=== PATIENT | female | born 1945 | race Caucasian/White ===

== ENCOUNTER → 2016-11-26 | Outpatient (CLI) | payer MEDICARE, OTHER ==
[~2016-11-26] MED LIST: ACAI BERRY500 MG PO; ACETAMINOPHEN P1 TA2 PO; ACETAMINOPHEN P1 TA5 PO; ALLERGY SHOTS; ASPIRIN81 M1 PO; ASPIRIN81 M2 PO; AVAPRO150 MG PO; CALCIUM + D 6001 TA1 PO; CALCIUM + VITAM1 TAB PO; CELEXA10 MG PO; FISH OIL 1,0001 EACH PO; HAIR, SKIN & N1 EACH PO; HEARTBURN150 MG PO; HORMONE CREAM; IRBESARTAN150 MG PO; LAMISIL250 MG PO; LORTAB 5/500 TA1 TA2 PO; METOPROLOL TAR25 MG PO; MICARDIS20 MG PO; MULTI-DAY VITAM1 TAB PO; MULTIPLE VITAMI1 T13 PO; NEXIUM PO; PANTOPRAZOLE SO40 MG PO; PHENERGAN12.5 MG PO; PREMARIN VAG CR45 GM MC; PROBIOTIC1 EAC3 PO; SINGULAIR; VICODIN 5/1 TAB 5/50 PO; VYTORIN 10-20 M1 TAB PO; ZOCOR20 MG PO; ZYRTEC PO; ZYRTEC10 M1 PO
--- NOTE | ~2016-11-26 | MY11 ---
[facility] A Service [facility] RADIOLOGY TEXT RESULTS PATIENT: ESMER GUILLEN LOCATION: [facility] : 49 UNIT #: [id number] AGE: [address]: Josef Isaac MD SEX: F ORDER DR: [id number] [address] [address] [id number] O MR#: [id number] Acc #: [id number] NAME: ESMER GUILLEN : 1945 SEX: F STUDY DATE/TIME: 11/26/2016 10:05 UNIT: [facility] ROOM: STUDY DESCRIPTION: MY Mammogram Screening Dig Jaret Attending Physician: Josef Isaac M.D. Referring Physician: Josef Isaac M.D. Ordering Physician: Josef Isaac M.D. Primary Care Physician: Josef Isaac M.D. MEDICAL IMAGING REPORT This report is preliminary unless electronic signature is present. EXAM Screening mammogram 11/26/2016 INDICATION 71-year-old with no personal or family history of breast cancer. No current complaints. FINDINGS Routine digital screening views of both breasts were obtained. Study is reviewed with an FDA-approved CAD device. Comparison made with 11/22/2015, 11/19/2014, 10/19/2013. Breast parenchyma shows scattered fibroglandular densities. No new masses or suspicious microcalcifications are seen. The benign calcifications are stable on the left breast. IMPRESSION Benign mammogram. Routine screening in 1 year recommended. Patient's over the age of 40 are entered into a reminder system with target due date for the next mammogram. BIRADS: 2 Benign findings Dictated by... Doug Gallegos Jr., M.D. THIS IS AN ELECTRONICALLY VERIFIED REPORT Doug Gallegos Jr., M.D. at 11/26/2016 12:30 PM JOSE/meera [facility] A Service [facility] RADIOLOGY TEXT RESULTS PATIENT: ESMER GUILLEN LOCATION: [facility] : 49 UNIT #: [id number] AGE: [address]: Josef Isaac MD SEX: F ORDER DR: TD: 11/26/2016 12:17 JOB #: [id number] MEDICAL IMAGING REPORT
== END | disposition home or self-care (01) ==
LOC: SMAM 09:34
DX: Z12.31 Encounter for screening mammogram for malignant neoplasm of breast (principal)
CPT/HCPCS: G0202

== ENCOUNTER → 2017-06-07 | Outpatient (CLI) | payer MEDICARE, OTHER ==
--- NOTE | ~2017-06-07 | CT23 ---
[facility] A Service of [facility] & [facility] RADIOLOGY TEXT RESULTS PATIENT: ESMER GUILLEN LOCATION: [facility] : 49 UNIT #: [id number] AGE: [address]: Josef Isaac MD SEX: F ORDER DR: [id number] [facility] [address] [place], [place] [address] [id number] O MR#: [id number] Acc #: [id number] NAME: ESMER GUILLEN : 1945 SEX: F STUDY DATE/TIME: 06/07/2017 10:43 UNIT: [facility] ROOM: STUDY DESCRIPTION: CT Angio Neck Attending Physician: Josef Isaac M.D. Referring Physician: Josef Isaac M.D. Ordering Physician: Josef Isaac M.D. Primary Care Physician: Josef Isaac M.D. 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 Symptoms for a few years, but worse this year. COMMENT CT angiography of the head and neck vessels performed during the intravenous administration of 100 mL of Isovue-370 with imaging acquired in the axial plane followed by multiple reconstructed and reformatted images for the purpose of 3-D CT angiography of the head and neck vessels. There is no previous CT angiogram of the head and neck. There is an MR angiogram pending scientology from 2013. This CT exam was performed with one or more of the following radiation dose reduction techniques: automatic control, adjustment of mA and/or kV according to patient size, and iterative reconstruction. CT ANGIOGRAM NECK: The arch shows vascular calcifications including great vessel origins but there does not appear to be hemodynamically significant stenosis of the great vessel origins. The branch pattern is normal. There is some soft plaque extending in the proximal left subclavian artery with mild narrowing. Evaluation of the right carotid system shows partially calcified plaque at the bifurcation. There is a moderate stenosis of the origin of the right external carotid artery. By NASCET criteria there does not appear to be hemodynamically significant stenosis of the proximal internal carotid artery. The right carotid siphon is widely patent. The left carotid system shows partially calcified plaque at the bifurcation. By NASCET criteria does not appear to be hemodynamically significant stenosis. There is calcified plaque at the origin of the left external carotid artery and this probably results in up to moderate stenosis. Left carotid [facility] A Service of [facility] RADIOLOGY TEXT RESULTS PATIENT: ESMER GUILLEN [facility] : 47 UNIT #: [id number] AGE: [address]: Josef Isaac MD SEX: F ORDER DR: siphon is widely patent. The right vertebral artery is mildly dominant and patent throughout the neck and intracranially and supplies the basilar. The left vertebral artery is patent throughout the neck and intracranially with only mild calcified plaque near its origin. Evaluation of the intracranial circulation shows no significant sized anterior communicator. There is no intracranial vascular cutoff. No focal central stenosis is suspected. The dural venous sinuses are grossly patent. No intracranial aneurysm is suspected allowing for the technical limitation of CT angiography for evaluation for aneurysm at the level of the skull base due to the adjacent bones. Neither posterior communicator is seen. Patient has had cataract surgery bilaterally. The mastoid air cells are clear. The visualized paranasal sinuses are essentially clear. There are some emphysematous changes at the apices. There is some streak artifact from dental metal. IMPRESSION 1. There is partially calcified plaque at both carotid bifurcations but by NASCET criteria there is no hemodynamically significant stenosis suspected and the bilateral carotid siphons are widely patent. 2. Both vertebral arteries are widely patent with the right being dominant. Both supply the basilar. The basilar is widely patent. There is no evidence for hemodynamically significant stenosis in the vertebrobasilar system. 3. No intracranial vascular cutoff. Vascular variations discussed above. No focal central stenosis is suspected. 4. There are some emphysematous changes seen at lung apices. Dictated by... Liseth Leavitt M.D. THIS IS AN ELECTRONICALLY VERIFIED REPORT Liseth Leavitt M.D. at 06/10/2017 4:53 PM SOCRATES/zeus TD: 06/08/2017 06:05 JOB #: [id number] MEDICAL IMAGING REPORT Page 1 of 1 COPY
--- NOTE | ~2017-06-07 | CT17 ---
[facility] A Service of [facility] RADIOLOGY TEXT RESULTS PATIENT: ESMER GUILLEN LOCATION: [facility] : 49 UNIT #: [id number] AGE: [address]: Josef Isaac MD SEX: F ORDER DR: [id number] [facility] [address] [place], [place] [address] [id number] O MR#: [id number] Acc #: [id number] NAME: ESMER GUILLEN : 1945 SEX: F STUDY DATE/TIME: 06/07/2017 10:43 UNIT: [facility] ROOM: STUDY DESCRIPTION: CT Angio Head Attending Physician: Josef Isaac M.D. Referring Physician: Josef Isaac M.D. Ordering Physician: Josef Isaac M.D. Primary Care Physician: Josef Isaac M.D. MEDICAL IMAGING REPORT This report is preliminary unless electronic signature is present EXAM CTA head Please see CTA neck for results. Dictated by... Liseth Leavitt M.D. THIS IS AN ELECTRONICALLY VERIFIED REPORT Liseth Leavitt M.D. at 06/10/2017 4:55 PM SOCRATES/zeus TD: 06/08/2017 06:06 JOB #: [id number] MEDICAL IMAGING REPORT Page 1 of 1 COPY
[2017-06-07 14:51] LABS: POC - CREATININE 0.93 mg/dL (0.44-1.03); POC - GFR >60.0 mL/min (>60)
== END | disposition home or self-care (01) ==
LOC: CCAT 09:04
PROVIDERS: Internal Medicine
DX: G45.3 Amaurosis fugax (principal); R42 Dizziness and giddiness; H81.49 Vertigo of central origin, unspecified ear; I65.23 Occlusion and stenosis of bilateral carotid arteries
CPT/HCPCS: 70496; 70498; 82565; Q9967